=== PATIENT | female | born 1945 | race Asian ===

== ENCOUNTER 2023-06-01 08:04 | Day surgery (SDC) | payer OTHER, MEDICARE ==
[2023-06-01] MEDS ORDERED: DENOSUMAB 60 MG/ML DISP.SYRIN SQ ONE (08:15)
[2023-06-01 13:34] VITALS: BP 163/89; PULSE 80; RESP 20; TEMP 98.1
== END 2023-06-01 09:00 | disposition home or self-care (01) ==
LOC: JINFUSION 08:04 → J7W 08:05 → JINFUSION 09:00
PROVIDERS: ATTEND Surgery Vascular Surgery
PROC: 3E013GC Introduction of Other Therapeutic Substance into Subcutaneous Tissue, Percutaneous Approach (ICD-10-PCS; principal; 2023-06-01)
DX: M81.0 Age-related osteoporosis without current pathological fracture (principal)
CPT/HCPCS: 96372; J0897

== ENCOUNTER 2023-12-03 07:37 | Day surgery (SDC) | payer OTHER, MEDICARE ==
[2023-12-03] MEDS: DENOSUMAB 60 MG/ML DISP.SYRIN SQ ONE (08:19)
[2023-12-03 15:03] VITALS: BP 168/92; PULSE 89; RESP 20; TEMP 97.9
== END 2023-12-03 09:00 | disposition home or self-care (01) ==
LOC: JINFUSION 07:37 → J7W 07:44 → JINFUSION 09:00
PROVIDERS: ATTEND Internal Medicine Endocrinology, Diabetes & Metabolism
PROC: 3E013GC Introduction of Other Therapeutic Substance into Subcutaneous Tissue, Percutaneous Approach (ICD-10-PCS; principal; 2023-12-03)
DX: M81.0 Age-related osteoporosis without current pathological fracture (principal)
CPT/HCPCS: 96372; J0897

== ENCOUNTER 2024-06-06 08:22 | Day surgery (SDC) | payer OTHER, MEDICARE ==
[2024-06-06] MEDS: DENOSUMAB 60 MG/ML DISP.SYRIN SQ ONE (08:35)
[2024-06-06 16:08] VITALS: BP 167/79; PULSE 67; RESP 18; TEMP 97.8
== END 2024-06-06 08:50 | disposition home or self-care (01) ==
LOC: JINFUSION 08:22 → J7W 08:22 → JINFUSION 08:50
PROVIDERS: ATTEND Internal Medicine Endocrinology, Diabetes & Metabolism
PROC: 3E013GC Introduction of Other Therapeutic Substance into Subcutaneous Tissue, Percutaneous Approach (ICD-10-PCS; principal; 2024-06-06)
DX: M81.0 Age-related osteoporosis without current pathological fracture (principal)
CPT/HCPCS: 96372; J0897

== ENCOUNTER 2024-12-28 08:18 | Day surgery (SDC) | payer OTHER, MEDICARE ==
[2024-12-28 08:34] VITALS: BP 128/77; PULSE 81; RESP 18; TEMP 97.5
[2024-12-28] MEDS: DENOSUMAB 60 MG/ML DISP.SYRIN SQ ONE (08:38)
== END 2024-12-28 09:00 | disposition home or self-care (01) ==
LOC: JINFUSION 08:18 → J7W 08:21 → JINFUSION 09:00
PROVIDERS: ATTEND Internal Medicine Endocrinology, Diabetes & Metabolism
PROC: 3E013GC Introduction of Other Therapeutic Substance into Subcutaneous Tissue, Percutaneous Approach (ICD-10-PCS; principal; 2024-12-28)
DX: M81.0 Age-related osteoporosis without current pathological fracture (principal)
CPT/HCPCS: 96372; J0897